=== PATIENT | female | born 1960 | race Caucasian/White ===

== ENCOUNTER 2016-07-15 06:26 | Inpatient (IN) | payer BC ==
[2016-06-13 13:58] VITALS: BMI 33.0
--- NOTE | 2016-06-13 14:27 | PAT Medication Instructions ---
Service Date Jun 13, 2016. Current Home Medication List Fluticasone Furoate (Veramyst), 2 SPRY KOSTA HS PRN for PRN Fluticasone Prop/Salmeterol (Advair Diskus 100/50 60 Dose), 1 PUFF INH BID PRN for PRN Loratadine (Claritin), 10 MG PO QAM Losartan Potassium (Cozaar), 50 MG PO QAM Meloxicam (Mobic), 15 MG PO QAM Paroxetine Mesylate (Vasomotor (Brisdelle), 7.5 MG PO QAM Zolpidem Tartrate (Zolpidem Tartrate), 1 TAB PO HS [Fiber Gummy], 2 TABS PO QAM Medication Instructions For Your Scheduled Surgery - Hold the following medications 10 days prior to surgery per surgeon's instructions: Meloxicam (Mobic), 15 MG PO QAM - Hold the following medications the morning of surgery: [Fiber Gummy], 2 TABS PO QAM Loratadine (Claritin), 10 MG PO QAM Losartan Potassium (Cozaar), 50 MG PO QAM - Take the following medications the morning of surgery with a sip of water OTHERWISE NOTHING TO EAT OR DRINK AFTER MIDNIGHT: Paroxetine Mesylate (Vasomotor (Brisdelle), 7.5 MG PO QAM Fluticasone Prop/Salmeterol (Advair Diskus 100/50 60 Dose), 1 PUFF INH BID PRN for PRN Fluticasone Furoate (Veramyst), 2 SPRY KOSTA HS PRN for PRN - Take the following medications as scheduled the night before surgery: Zolpidem Tartrate (Zolpidem Tartrate), 1 TAB PO HS Fluticasone Prop/Salmeterol (Advair Diskus 100/50 60 Dose), 1 PUFF INH BID PRN for PRN If you have any questions please call us at [phone] (Rhina Harrison PA-C ) or [phone] or [phone]
[2016-06-13 14:52] LABS: BASO ABS # 0.07 K/uL (0-0.2); COMPLETE YES; EOS % 6.2 %; HEMATOCRIT 38.9 % (37-47); IG% 0.1 %; LYMPH % 24.8 %; LYMPH ABS # 1.76 K/uL (1.2-3.4); MEAN CELL VOLUME 84.7 fL (80-100); MEAN CORPUSCULAR HGB CONC 34.2 g/dl (32-36); MEAN PLATELET VOLUME 10.8 fL (7.4-10.4); MONO % 6.6 %; NEUT % 61.3 %; PLATELET COUNT 255 K/uL (130-400); RED BLOOD COUNT 4.59 M/uL (4.2-5.4)
[2016-06-13 15:00] LABS: URINE APPEARANCE CLEAR (CLEAR); URINE BILIRUBIN NEG (NEG); URINE COLOR YELLOW; URINE EPITHELIAL CELL AUTO >30 /lpf (0-5); URINE NITRITE NEG (NEG); URINE SPECIFIC GRAVITY 1.026 (1.000-1.030); UROBILINOGEN NEG (NEG); ZZUR CULT IF INDIC CLEAN CATCH NO
[2016-06-13 15:02] LABS: MANUAL MICROSCOPIC REQUIRED? NO; REVIEW REQ? NO
[2016-06-13 15:04] LABS: PROTHROMBIN TIME (PATIENT) 10.3 SECONDS (9.0-12.0)
[2016-06-13 15:33] LABS: BUN/CREATININE RATIO 18.3 (10-20); CREATININE 0.76 mg/dl (0.60-1.20)
[2016-06-13 18:14] LABS: CALCIUM 9.4 mg/dl (8.5-10.1)
--- NOTE | 2016-07-11 09:07 | HISTORY & PHYSICAL EXAMINATION ---
DATE OF ADMISSION: 07/15/2016 CHIEF COMPLAINT: Left knee pain. HISTORY OF PRESENT ILLNESS: Sissy is a 56-year-old female with a multiple-year history of pain in her left knee. The patient has pain with her daily activities. She has limited standing and walking tolerance. Pain is worse with weightbearing. The patient has had injections, anti-inflammatories, and home exercise program without relief. She has failed conservative treatment and is scheduled for left knee replacement. PAST MEDICAL HISTORY: Hypertension. She denies heart disease, diabetes or DVT. PAST SURGICAL HISTORY: Right TKA, hysterectomy, cholecystectomy, appendectomy, and right knee arthroscopy. SOCIAL HISTORY: The patient denies alcohol or tobacco use. She lives in a single story home. She is and retired. FAMILY HISTORY: Positive for PE in her father. MEDICATIONS: Brisdelle 7.5 mg daily, losartan 50 mg daily, Meloxicam 15 mg daily, Ambien 10 mg daily, Advair 100/50 two puffs daily, Veramyst 27.5 two sprays each nostril. ALLERGIES: None. REVIEW OF SYSTEMS: See HPI. Ten other systems reviewed, all negative. PHYSICAL EXAMINATION: VITAL SIGNS: Height 5 feet 1 inch, weight 172 pounds, BMI is 32. GENERAL: This is a well-developed, well-nourished female who is alert and oriented x3. Mood and affect are appropriate. HEENT: Normocephalic, atraumatic. Mucous membranes are moist and intact. NECK: Supple without lymphadenopathy. HEART: Regular rate and rhythm without murmurs, rubs or gallops. LUNGS: Clear to auscultation without wheezes or rhonchi. ABDOMEN: Soft and nontender. Bowel sounds are equal and active. EXTREMITIES: No ecchymosis, redness or warmth. Thigh and calf are soft and nontender. She has varus deformity. Range of motion is from 0-115 degrees with +1 to 2 medial laxity. She is neurovascularly intact with +5/5 strength. X-RAY EXAMINATION: AP and lateral views show joint space narrowing and osteophyte formation. IMPRESSION: Degenerative joint disease left knee. PLAN: The patient will be admitted for a left total knee arthroplasty and likely cruciate retaining. We will plan on aspirin for DVT prophylaxis. The patient's PCP is Dr. Miquel Han.
[2016-07-15] VITALS (8 sets, daily range): BP systolic 96–127; BP diastolic 61–95; PULSE 58–94; TEMP 36.4–37; O2SAT 96–100; Ht 154.9 cm; Wt 79.0 kg
[~2016-07-15] VITALS: Ht 154.9 cm; Wt 79.0 kg
[~2016-07-15 06:26] MED LIST: ACETAMINOPHEN 500 MG TAB PO SCH; ADVIN10/60 INH; CEFAZOLIN 2000 MG/60 ML D5W 60 ML IV SCH; CLR10 PO; CeleBREX 200 MG CAP PO SCH; DEXAMETHASONE 4 MG TAB PO SCH; FAMOTIDINE 20 MG TAB PO SCH; FIBER GUMMY PO; FLUT27.5 NAE; GABAPENTIN 300 MG CAP PO SCH; LACTATED RINGER'S 1000ML 1,000 ML IV SCH; LACTATED RINGER'S 1000ML 500 ML IV ONE; LOSA50TA6 PO; MELO7.5T5 PO; METOCLOPRAMIDE HCL 10 MG TAB PO SCH; PARO1CAP PO; POLYMYXIN B SULFATE 100,000 UNITS in NSS 100ML IR SCH; ROPIVACAINE 5MG/ML 30 ML 150 MG, BUPIVACAINE/EPINEPHR 0.5% MPF 30 ML, KETOROLAC TROMETH... INFIL SCH; SCOPOLAMINE 1.5 MG TDSY TD SCH; VANCOMYCIN INJ 400 MG in NSS 100ML IR SCH; ZOLP10TA6 PO
[2016-07-15] MEDS ORDERED: BUPIVACAINE 0.25% 30 ML VIAL ONE (06:33)
[2016-07-15] MEDS ORDERED: BUPIVACAINE 0.5 % 5 MG/1 ML PF 10ML VIAL ONE (06:33)
[2016-07-15] MEDS ORDERED: ORTHO JOINT ANESTHETIC ONE (06:51)
[2016-07-15] MEDS ORDERED: POTA10CA28 PO (06:56)
--- NOTE | 2016-07-15 06:58 | History & Physical Bridge Note ---
H&P Re-Evaluation Bridge Note: I have examined the patient, reviewed the History & Physical and in the interval since the performance of the History & Physical I have noted the following changes of clinical significance: No changes noted
[2016-07-15] MEDS ORDERED: PROPOFOL IV EMULSION 10 MG/ML 20 ML VIAL IV ONE (07:51)
[2016-07-15] MEDS ORDERED: LIDOCAINE HCL 2% 2 ML VIAL (20MG/ML) ONE (07:51)
[2016-07-15] MEDS ORDERED: MIDAZOLAM HCL 1 MG/ML 2ML VIAL ONE (07:51)
[2016-07-15] MEDS: TRANEXAMIC ACID INJ 1,000 MG in SODIUM CHLORIDE 0.9% 100ML 100 ML IV SCH ×2 (08:18→09:50)
[2016-07-15] MEDS ORDERED: POVIDONE-IODINE OP SOLN 30 ML BTL TOP ONE (09:48)
[2016-07-15] MEDS ORDERED: BACITRACIN 50000 UNIT VIAL IR ONE (09:48)
[2016-07-15] MEDS ORDERED: BUPIVACAINE/EPINEPHRINE 0.25% 1:200,000 30 ML VIAL INJ ONE (09:48)
--- NOTE | 2016-07-15 09:51 | [facility] Post Operative Brief Note ---
Immediate Operative Summary Operative Date Jul 15, 2016. Pre-Operative Diagnosis Left Knee Degenerative Joint Disease Post-Operative Diagnosis Left Knee Degenerative Joint Disease Procedure(s) Performed Left Total Knee Arthroplasty Cemented Surgeon Dr. Farzad Sumner Manipulator Operator Surgeon(s) Claudio Valencia PA-C Estimated Blood Loss 50ML Findings TRICOMP DJD ACL DETIORATED Specimens A. Left Knee Bone and Tissue Complication(s) None Disposition Recovery Room / PACU
[2016-07-15] MEDS ORDERED: TRAMADOL HCL 50 MG TAB PO PRN (10:00)
[2016-07-15] MEDS ORDERED: BISACODYL 10 MG SUPP PR PRN (10:00)
[2016-07-15] MEDS ORDERED: ZOLPIDEM TARTRATE 5 MG TAB PO PRN (10:00)
[2016-07-15] MEDS ORDERED: DiphenhydrAMINE HCL 50 MG/ML VIAL IV PRN (10:00)
[2016-07-15] MEDS ORDERED: MoRPHine SULFATE 2 MG/ML CARP IV PRN (10:00)
[2016-07-15] MEDS ORDERED: ONDANSETRON INJ 2 MG/ML 2 ML VIAL IV PRN ×2 (10:00→11:15)
[2016-07-15] MEDS ORDERED: MAGNESIUM HYDROXIDE SUSP 30 ML UDC PO PRN (10:00)
[2016-07-15] MEDS ORDERED: KETOROLAC TROMETHAMINE 30 MG/ML VIAL IV. PRN ×2 (10:00→11:15)
[2016-07-15] MEDS ORDERED: ALUMINUM/MAGNESIUM/SIMETH (MAALOX MAX) 30 ML UDC PO PRN (10:00)
[2016-07-15] MEDS ORDERED: FLUTICASONE/SALMETEROL 100/50 (ADVAIR) 14 PUFF/1 INHALER INH PRN (10:00)
[2016-07-15] MEDS ORDERED: OXYCODONE HCL IR 5 MG TAB (IMMEDIATE RELEASE) PO PRN (10:00)
[2016-07-15] MEDS ORDERED: SOD PHOSPHATE/SOD BIPHOSPHATE ENEMA 132 ML BTL PR PRN (10:00)
[2016-07-15] MEDS ORDERED: METOCLOPRAMIDE HCL INJ 5 MG/ML 2 ML VIAL IV PRN (10:00)
--- NOTE | 2016-07-15 11:05 | DIAGNOSTIC IMAGING REPORT ---
TWO VIEWS LEFT KNEE CLINICAL HISTORY: Postoperative examination. FINDINGS: AP and crosstable lateral portable views of the left knee are obtained. A left knee arthroplasty is in near anatomic alignment. There has been undersurface remodeling of the patella. No acute fracture is seen. There are expected postoperative changes around the knee including a surgical drain, soft tissue edema, and subcutaneous gas. IMPRESSION: Expected postoperative changes status post left knee arthroplasty. No acute fracture is seen. Electronically signed by: Aubrey Guy M.D. 07/15/2016 11:03 AM Dictated Date/Time: 07/15/2016 11:03 AM
[2016-07-15] MEDS ORDERED: ATROPINE SULFATE 0.1 MG/ML 5ML SYR IV PRN (11:15)
[2016-07-15] MEDS ORDERED: HYDROmorphone INJ 2 MG/ML SYR/VIAL IV PRN (11:15)
[2016-07-15] MEDS ORDERED: PHENYLEPHRINE 100MCG/ML 5ML SYR IV PRN (11:15)
[2016-07-15] MEDS ORDERED: EpHEDrine SULFATE INJ 50 MG/ML AMP IV PRN (11:15)
[2016-07-15] MEDS ORDERED: FLUTICASONE PROPIONATE NA SPR 16 GM BTL PRN (13:00)
--- NOTE | 2016-07-15 13:06 | Anesthesiology Progress Note ---
Anesthesia Post Op Note Date & Time Jul 15, 2016 at 13:05 Vital Signs Pain Intensity: 0.0 Vital Signs Past 12 Hours Date Time Temp Pulse Resp B/P Pulse Ox O2 Delivery O2 Flow Rate FiO2 07/15/16 12:16 36.7 66 16 96/64 100 Nasal Cannula 2.0 07/15/16 11:20 Nasal Cannula 2.0 07/15/16 11:20 99 Nasal Cannula 2.0 07/15/16 11:20 37.0 79 16 100/62 99 Nasal Cannula 2.0 07/15/16 11:10 37.0 77 14 118/69 98 Nasal Cannula 2 07/15/16 11:00 75 13 123/72 99 Nasal Cannula 2 07/15/16 10:50 77 14 120/71 100 Mask 10 07/15/16 10:40 81 16 126/72 100 Mask 10 07/15/16 10:30 36.3 81 16 123/71 100 Mask 10 07/15/16 06:56 37.0 94 18 127/95 98 Room Air Notes Mental Status: alert / awake / arousable, participated in evaluation Pt Amnestic to Procedure: Yes Nausea / Vomiting: adequately controlled Pain: adequately controlled Airway Patency, RR, SpO2: stable & adequate BP & HR: stable & adequate Hydration State: stable & adequate Anesthetic Complications: no major complications apparent
[2016-07-15] MEDS: D5W AND 1/2NSS + 20MEQ KCL 1,000 ML IV SCH ×2 (13:09→23:45)
[2016-07-15] MEDS: ACETAMINOPHEN 500 MG TAB PO SCH ×2 (13:34→21:09)
[2016-07-15] MEDS: CEFAZOLIN IV 2,000 MG in DEXTROSE 5% 50ML 50 ML IV SCH ×2 (15:46→23:44)
[2016-07-15] MEDS: CHECK SCOPOLAMINE PATCH PLACEMENT SCH ×2 (15:46→23:46)
[2016-07-15] MEDS ORDERED: TRANEXAMIC ACID INJ 1,000 MG in SODIUM CHLORIDE 0.9% 100ML 100 ML IV SCH (16:30)
--- NOTE | 2016-07-15 18:04 | OPERATIVE REPORT ---
DATE OF OPERATION: 07/15/2016 PREOPERATIVE DIAGNOSIS: Degenerative arthritis, left knee. POSTOPERATIVE DIAGNOSIS: Same. PROCEDURE: Left total knee with patient matched implant. SURGEON: Farzad Sumner MD HEAD ANIMAL TRAINER: ROHAN Huber ANESTHESIA: Spinal. TOURNIQUET TIME: Nine minutes at 275 mmHg. BLOOD LOSS: 50 mL. DRAINS: Hemovacs x2. CULTURES: None. COMPLICATIONS: None. COMPONENTS USED: [employer]hew SpanDeXwichita Knee System: Femur size 5, tibia size 3 x 10, patella size 32. NOTE: ROHAN Huber was present and assisted throughout due to the complicated nature of this case. He helped with preparation and set up, first assisted throughout and personally closed the capsule, subcutaneous and skin layers and applied the postoperative dressing. DESCRIPTION: Following satisfactory spinal, a tourniquet was placed. The lower extremity was prepared with ChloraPrep and draped sterilely. Following a surgical timeout, the tourniquet was initially inflated because it was thought that this would be a cruciate retaining knee. A median parapatellar arthrotomy was performed. The knee was inspected and the ACL showed significant deterioration. Therefore, the tourniquet was deflated. Bleeding was controlled using the Aquamantys system. The patient matched femoral block was applied. Femoral distal rotation and resection were set and completed and the 4-in-1 block was used to finish preparation of the femur. The patient matched tibial block was applied. Tibial resection was completed. The patella was freehand cut. Soft tissue balancing was completed and a trial reduction showed good tensioning stability on the collateral ligaments, stable range of motion, and the patella tracked well. The trial components were removed. The capsule was prepared with the orthopedic cocktail. After irrigation, the components were cemented using Simplex G cement. A Betadine soak was performed. When the cement had hardened, the Betadine was irrigated. Two drains were placed. The arthrotomy was closed with a running suture of 0 V-Loc. The subcutaneous tissues were closed with 2-0 Vicryl, the skin with a running subcuticular stitch of 3-0 V-Loc. Dermabond and a dry dressing were applied. The patient was returned to her bed in stable condition. I attest to the content of the Intraoperative Record and any orders documented therein. Any exceptio ns are noted below.
[2016-07-15] MEDS ORDERED: SENNA 8.6 MG TAB PO SCH (21:00)
[2016-07-15] MEDS ORDERED: ZOLPIDEM TARTRATE 10 MG TAB PO SCH (21:00)
[2016-07-15] MEDS: OXYCODONE HCL 10 MG TABCR (OXYCONTIN) PO SCH (21:09)
[2016-07-15] MEDS: ASPIRIN 81 MG ECTAB PO SCH (21:09)
[2016-07-16 03:23] VITALS: BP 110/70; PULSE 53; TEMP 36.7; O2SAT 98
[2016-07-16] MEDS: ACETAMINOPHEN 500 MG TAB PO SCH (05:36)
[2016-07-16 06:25] LABS: HEMATOCRIT 33.4 % (37-47); MEAN CELL VOLUME 86.8 fL (80-100); MEAN CORPUSCULAR HEMOGLOBIN 28.8 pg (25-34); MEAN CORPUSCULAR HGB CONC 33.2 g/dl (32-36); MEAN PLATELET VOLUME 11.1 fL (7.4-10.4); PLATELET COUNT 251 K/uL (130-400); RED BLOOD COUNT 3.85 M/uL (4.2-5.4); WHITE BLOOD COUNT 14.64 K/uL (4.8-10.8)
[2016-07-16 06:57] LABS: BUN/CREATININE RATIO 22.7 (10-20); CALCIUM 8.8 mg/dl (8.5-10.1); CREATININE 0.72 mg/dl (0.60-1.20); POTASSIUM 3.5 mmol/L (3.5-5.1)
[2016-07-16] MEDS: CHECK SCOPOLAMINE PATCH PLACEMENT SCH (07:12)
[2016-07-16] MEDS: D5W AND 1/2NSS + 20MEQ KCL 1,000 ML IV SCH (07:13)
--- NOTE | 2016-07-16 07:39 | Orthopedic Progress Note ---
Orthopedic Progress Note Date of Service Jul 16, 2016. Subjective Post OP Day: 1 Reports: feeling well, pain controlled w PO medications, Denies: complaints, light headedness, nausea / vomiting Objective calves soft nontender, N/V intact, dressing C/D/I, A&O x3, toes mobile, hemovac drainage (75 last shift ) Date Time Temp Pulse Resp B/P Pulse Ox O2 Delivery O2 Flow Rate FiO2 07/16/16 07:16 Room Air 07/16/16 03:23 36.7 53 16 110/70 98 Room Air 07/15/16 23:45 Room Air 07/15/16 22:50 36.7 61 18 107/64 96 Room Air 07/15/16 19:15 Room Air 07/15/16 19:08 36.7 62 18 102/61 97 Room Air 07/15/16 15:00 36.6 58 18 112/72 100 Nasal Cannula 2.0 07/15/16 14:14 36.4 59 16 98/63 100 2.0 07/15/16 13:20 66 16 102/64 100 2.0 07/15/16 12:16 36.7 66 16 96/64 100 Nasal Cannula 2.0 07/15/16 11:20 Nasal Cannula 2.0 07/15/16 11:20 99 Nasal Cannula 2.0 07/15/16 11:20 37.0 79 16 100/62 99 Nasal Cannula 2.0 07/15/16 11:10 37.0 77 14 118/69 98 Nasal Cannula 2 07/15/16 11:00 75 13 123/72 99 Nasal Cannula 2 07/15/16 10:50 77 14 120/71 100 Mask 10 07/15/16 10:40 81 16 126/72 100 Mask 10 07/15/16 10:30 36.3 81 16 123/71 100 Mask 10 Laboratory Results 24 Hours: Test 07/16/16 05:19 Hematocrit 33.4 % Hemoglobin 11.1 g/dL Assessment & Plan Assessment: POD 1 LTKA Plan: HOME [facility] HOME HEALTH Inhouse Planning Pain Management: Celebrex, Oxycontin, PO Tylenol, Oxy IR DVT Prophylaxis: TEDs, SCDs, ASA Discharge Planning Discharge Planning: home with home health Pain Management: Celebrex, Oxycontin, PO Tylenol, Oxy IR DVT Prophylaxis: TEDs, ASA Therapy: Physical Therapy
--- NOTE | 2016-07-16 07:44 | Discharge Instructions ---
Discharge Instructions Admission Reason for Admission: Left Knee Degenerative Arthritis Discharge Discharge Diagnosis / Problem: SP LEFT TKA Discharge Goals Goal(s): Decrease discomfort, Improve function, Increase independence Activity Recommendations Activity Limitations: resume your previous activity . Instructions / Follow-Up Instructions / Follow-Up ACTIVITY RECOMMENDATIONS: SELF CARE INSTRUCTIONS AFTER TOTAL KNEE REPLACEMENT A. You may need to continue a physical therapy program after discharge from the hospital. There are several options available to you. Your doctor will assist you in selecting the best one for you. 1. An out-patient facility 2 to 3 times a week for therapy or home therapy. 2. Continue working on all exercises taught to you in the hospital. Your goals should be to increase bending of your knee to 90 degrees and beyond and to fully straighten your knee. B. You may progress at your own pace from walking with a walker or crutches to a cane; then to no assistive devices. C. Make walking a part of your daily routine. Be up as much as comfortable with rest periods throughout the day. Rest with leg elevation is very important. Use the ice wrap frequently for the first 3-4 weeks. D. There are no restrictions on activities. You may ride in a car, shop, participate in software tools engineer and all social activities. E. Wear the long elastic stockings (OTF hose) 20 hours a day for 2 weeks after surgery. They can be removed several times a day for laundering and for a bath. F. You may shower, no tub baths until cleared by your doctor. SPECIAL CARE INSTRUCTIONS: VERY IMPORTANT TO READ AND REVIEW A. There are a few signs you need to watch for after you are home. Call [facility] if you notice any of the followin. Increased severe knee pain. Some pain is expected especially when you exercise. 2. Increased swelling in your leg or knee; pain or swelling of the calf muscle in either lower leg. 3. Any fluid drainage from the incision. 4. Shortness of breath or chest pain. B. Please call [facility] [place] at if you have any concerns or questions about your operation or recovery. The doctor or his nurse will return your call promptly. C. You must take antibiotics before dental work, bladder, bowel or other surgery. Your doctor will provide you with a permanent care to carry describing this precaution. IMPORTANT: * REMEMBER TO TAKE ASPIRIN, 81 MG, TWICE DAILY FOR 4 WEEKS UNLESS OTHERWISE DIRECTED. THIS IS YOUR BLOOD THINNER. * HIGH RISK PATIENTS MAY BE PRESCRIBED A STRONGER BLOOD THINNER. THIS WILL BE PROVIDED AT DISCHARGE. * CALL IF INCREASED PAIN, REDNESS, DRAINAGE OR FEVER GREATER THAT 101. * WEAR OTF HOSE 20 HOURS PER DAY FOR 2 WEEKS. DERMABOND Prineo- This is a mesh tape dressing that is covered with glue. It should remain in place until the incision is properly healed, usually 10-14 days. This dressing is designed to naturally slough off. You may trim the excess mesh tape as it peels off. Incision may be briefly wet in a shower. Dry immediately by blotting with a clean, dry towel. Do not bath or swim until instructed by your doctor. Do not scratch, rub, or pick at the dressing. Do not apply any topical ointments or lotions until dressing is completely removed and/or instructed by your doctor. There may be a small piece of suture material at one end of your incision. Do not pull or trim this. If it is bothersome or catching on clothing, you may cover it with a band-aid. FOLLOW UP VISIT: If appointment is not already scheduled: Please call [facility] to make a follow-up appointment for 2 weeks after your surgery at . Current Hospital Diet Patient's current hospital diet: Regular Diet Discharge Diet Recommended Diet: Regular Diet Procedures Procedures Performed: Left Total Knee Arthroplasty Cemented Pending Studies Studies pending at discharge: no Medical Emergencies . Who to Call and When: Medical Emergencies: If at any time you feel your situation is an emergency, please call 911 immediately. . Non-Emergent Contact Non-Emergency issues call your: Primary Care Provider . "Provider Documentation" section prepared by Veronika Benitez. VTE Core Measure Inpt VTE Proph given/why not?: Other Anticoagulation, T.E.D. Stockings, SCD's
[2016-07-16] MEDS ORDERED: ASPEC81 PO (07:46)
[2016-07-16] MEDS ORDERED: SNK PO (07:46)
[2016-07-16] MEDS ORDERED: CLB200 PO (07:46)
[2016-07-16] MEDS ORDERED: ONDA8TAB6 PO (07:46)
[2016-07-16] MEDS ORDERED: ACET-1138 PO (07:46)
[2016-07-16] MEDS ORDERED: OXYSR10 PO (07:46)
[2016-07-16 08:00] VITALS: BP 108/66; PULSE 74; TEMP 36.5; O2SAT 94
[2016-07-16] MEDS: OXYCODONE HCL 10 MG TABCR (OXYCONTIN) PO SCH (08:41)
[2016-07-16] MEDS: ASPIRIN 81 MG ECTAB PO SCH (08:41)
[2016-07-16] MEDS ORDERED: FIBER GUMMY PO SCH (09:00)
[2016-07-16] MEDS ORDERED: POTASSIUM CHLORIDE 10 MEQ TABCR PO SCH (09:00)
[2016-07-16] MEDS ORDERED: LOSARTAN POTASSIUM 50 MG TAB PO SCH (09:00)
[2016-07-16] MEDS ORDERED: PANTOprazole SOD 40 MG TAB PO SCH (09:00)
[2016-07-16] MEDS ORDERED: LORATADINE 10 MG TAB PO SCH (09:00)
[2016-07-16] MEDS ORDERED: MULTIVITAMIN TAB PO SCH (09:00)
--- NOTE | 2016-07-16 09:43 | Anesthesiology Progress Note ---
Anesthesia Post Op Note Date & Time Jul 16, 2016 at 09:42 Vital Signs Pain Intensity: 0.0 Vital Signs Past 12 Hours Date Time Temp Pulse Resp B/P Pulse Ox O2 Delivery O2 Flow Rate FiO2 07/16/16 08:00 36.5 74 16 108/66 94 Room Air 07/16/16 07:16 Room Air 07/16/16 03:23 36.7 53 16 110/70 98 Room Air 07/15/16 23:45 Room Air 07/15/16 22:50 36.7 61 18 107/64 96 Room Air Notes Mental Status: alert / awake / arousable, participated in evaluation Pt Amnestic to Procedure: Yes Nausea / Vomiting: adequately controlled Pain: adequately controlled Airway Patency, RR, SpO2: stable & adequate BP & HR: stable & adequate Hydration State: stable & adequate Neuraxial Anesthesia: sensory block resolved Anesthetic Complications: no major complications apparent
[2016-07-16 10:52] VITALS: BP 108/66; PULSE 74; TEMP 36.5; O2SAT 94
[2016-07-16 11:24] VITALS: BP 103/65; PULSE 71; TEMP 36.7; O2SAT 96
[2016-07-16] MEDS ORDERED: RXC5 PO (11:42)
--- NOTE | 2016-07-17 20:42 | DISCHARGE SUMMARY ---
DISCHARGE DIAGNOSIS: Degenerative joint disease, left knee. SECONDARY DIAGNOSIS: Hypertension. CONSULTS: None. COMPLICATIONS: None. PROCEDURE: Left total knee arthroplasty performed by Dr. Farzad Sumner on 07/15/2016. BRIEF HISTORY: As dictated in the history and physical. HOSPITAL SUMMARY: The patient was admitted on the above date and had the above-noted surgery performed which she tolerated well. On her first postoperative day, she was feeling well and pain was controlled. She had no complaints. Calves were soft, nontender, neurovascularly intact. Dressings clean, dry and intact. Toes were mobile. Vital signs were stable and she was afebrile. Hemoglobin was 11.1 and she was started on physical therapy protocol and continued on DVT prophylaxis and pain management. She progressed well with her physical therapy, continued to remain stable and it was felt she could be discharged to home on 07/16/2016. For further review, please see chart. LAB AND X-RAY DATA: As per chart. DISCHARGE INSTRUCTIONS: The patient was discharged to home in satisfactory condition on 07/16/2016. DIET: Regular. ACTIVITY: Follow TKA instruction sheets and special care instructions as noted. Follow up with Dr. Farzad Sumner in 2 weeks. The patient to call for appointment if one has not been made for you. DISCHARGE MEDICATIONS: Acetaminophen 1000 mg p.o. q. 8 hours, aspirin 81 mg p.o. b.i.d., Celebrex 200 mg p.o. b.i.d., Zofran 8 mg p.o. q. 8 hours p.r.n. nausea, OxyContin 10 mg p.o. q. 12 hours, oxycodone 5-10 mg p.o. q. 4 hours p.r.n., senna 17.2 mg p.o. at bedtime. Resume taking Veramyst 27.5/2 sprays at bedtime p.r.n., Advair Diskus 100/50 one puff inhaled b.i.d. p.r.n., loratadine 10 mg p.o. q.a.m., losartan potassium 50 mg p.o. q.a.m., paroxetine mesylate 7.5 mg p.o. q.a.m., potassium chloride 10 mEq p.o. daily, zolpidem tartrate 10 mg 1 tab p.o. at bedtime, fiber tablets 2 tablets p.o. q.a.m. Stop taking meloxicam.
[2016-07-17] MEDS ORDERED: CeleBREX 200 MG CAP PO SCH (21:00)
== END 2016-07-16 13:23 | disposition home health service (06) | DRG 470 ==
LOC: ENRESERVDT → ENRESERVTM → C.ACU 06:26 → C.3E 06:45
PROVIDERS: ADMIT Orthopaedic Surgery; ATTEND Orthopaedic Surgery
PROC: 0SRD0J9 Replacement of Left Knee Joint with Synthetic Substitute, Cemented, Open Approach (ICD-10-PCS; principal; 2016-07-15 08:30)
DX: M17.12 Unilateral primary osteoarthritis, left knee (principal); I10 Essential (primary) hypertension; Z96.651 Presence of right artificial knee joint; E66.9 Obesity, unspecified; Z68.32 Body mass index [BMI] 32.0-32.9, adult; J45.909 Unspecified asthma, uncomplicated; Z79.899 Other long term (current) drug therapy; Z79.51 Long term (current) use of inhaled steroids; Z79.1 Long term (current) use of non-steroidal anti-inflammatories (NSAID)